=== PATIENT | female | born 2000 | race Caucasian/White ===

== ENCOUNTER 2021-07-12 11:29 | Observation (INO) | payer OTHER, SELFPAY ==
--- NOTE | ~2021-07-12 | US_ITS ---
EXAMINATION: US OB limited DATE: 07/12/2021 14:44 INDICATION: Placenta check. Assess well-being during third trimester . TECHNIQUE: Real-time ultrasound of the pelvis was performed. The interpreting radiologist was not pre sent for the study. COMPARISON: None. FINDINGS: There is a single living fetus in vertex presentation. The placenta is right posterior. heart rate is 139 beats per minute (bpm). The amniotic fluid index is 21.8 cm, which is normal (5th%-95%: 8 .3-24.5 cm at 33 weeks estimated gestational age). IMPRESSION: 1. Single living fetus in vertex presentation with heart rate of 139 bpm. 2. Normal amniotic fluid index of 21.8 cm. Reviewed, dictated and finalized at location A. IMPRESSION: 1. Single living fetus in vertex presentation with heart rate of 139 bpm . 2. Normal amniotic fluid index of 21.8 cm.
[2021-07-12 13:12] LABS: Add Urine Microscopic? YES; Appearance Urine Cloudy (Clear); Bacteria Urine Trace /hpf; Bilirubin Urine Negative (Negative); Blood Urine 1+ (Negative); Color Urine Yellow (Yellow); Glucose Urine UA Negative (Negative); Ketones Urine Negative (Negative); Leukocyte Esterase Ur 3+ LEU/UL (Negative); Nitrate Urine Negative (Negative); Protein Urine 1+ mg/dL (Negative); RBC Urine 0-2 /hpf (0-2); Specific Grav Ur 1.018 (1.001-1.035); Urobilinogen Urine Negative mg/dL (<2.0); WBC Urine 0-3 /hpf
--- NOTE | 2021-07-12 15:41 | OBADM ---
This patient, Fanta Monsivais, admitted to the OB room OB Post 112 for observation. Patient/family oriented to hospital policies and general routines including ID bracelet, bed and alarms, visiting hours, pain management, procedures, bathroom and other care routines, personal items, smoking policy, room service/diet, and visiting hours. Patient/Family are encouraged to report perceived risks to care and to ask questions if they do not understand what they are told or what they should do.
--- NOTE | 2021-07-12 16:03 | PC.NURSE ---
1430- Pt to ultrasound per wheelchair.
--- NOTE | 2021-07-12 16:03 | PC.NURSE ---
1445- pt returned from ultrasound per wheelchair.
--- NOTE | 2021-08-11 19:44 | P.PNOB_ITS ---
OB - Triage/Final Diagnosis Visit Information Comments/Additional reasons for admission: I have assessed the risk for this patient, Fanta Monsivais, and determined that she would benefit from observation care. Evaluation Laboratory results: Laboratory Tests 07/12/21 12:53 Urine Color Yellow Urine Appearance Cloudy H Urine pH 6.0 Ur Specific [place] 1.018 Urine Protein 1+ H Urine Glucose (UA) Negative Urine Ketones Negative Ur Blood (Man) 1+ H Urine Nitrate Negative Urine Bilirubin Negative Urine Urobilinogen Negative Leukocyte Esterase Rfl 3+ H Urine RBC 0-2 Urine WBC 0-3 Urine Bacteria Trace Final Diagnosis (1) Third trimester bleeding: Code(s): O46.93 - Antepartum hemorrhage, unspecified, third trimester Status: Acute
== END 2021-07-12 15:15 | disposition home or self-care (01) ==
PROVIDERS: Admitting Provider Obstetrics & Gynecology; PCP Family Medicine; Visit Provider Obstetrics & Gynecology
DX: O46.93 Antepartum hemorrhage, unspecified, third trimester (principal); Z3A.33 33 weeks gestation of pregnancy
CPT/HCPCS: 76815; 81001; G0378; G0379

== ENCOUNTER 2021-08-06 19:43 | Observation (INO) | payer OTHER, SELFPAY ==
[2021-08-06 21:50] VITALS: BMI 40.0
--- NOTE | 2021-08-06 21:50 | LDADM ---
This patient, Fanta Monsivais, was admitted to Labor/Delivery/Recovery 105 on 08/06/21 at 19:43. Plans for labor, pain management and were discussed with patient. Patient/family oriented to hospital policies and general routines including ID bracelet, bed and alarms, visiting hours, pain management, procedures, bathroom and other care routines, personal items, smoking policy, room service/diet and guest tray routines, infant security routines, and visiting hours. Patient/Family are encouraged to report perceived risks to care and to ask questions if they do not understand what they are told or what they should do. See OBIX for further documentation.
--- NOTE | 2021-08-31 19:40 | PM.OBTRLD ---
OB - Triage/Final Diagnosis Visit Information Comments/Additional reasons for admission: I have assessed the risk for this patient, Fanta Monsivais, and determined that she would benefit from observation care. Final Diagnosis (1) False labor: Code(s): O47.9 - False labor, unspecified Status: Acute
== END 2021-08-06 22:10 | disposition home or self-care (01) ==
PROVIDERS: Admitting Provider Obstetrics & Gynecology; PCP Family Medicine; Visit Provider Obstetrics & Gynecology
DX: O47.9 False labor, unspecified (principal); Z3A.00 Weeks of gestation of pregnancy not specified
CPT/HCPCS: G0378; G0379

== ENCOUNTER 2021-08-19 05:50 | Inpatient (IN) | payer OTHER, SELFPAY ==
[2021-08-19] VITALS (109 sets, daily range): BP systolic 93–169; BP diastolic 39–122; PULSE 65–123; RESP 18; TEMP 36.4–36.9; O2SAT 77–100; BMI 40.5
--- NOTE | 2021-08-19 05:50 | LDADM ---
This patient, Fanta Monsivais, was admitted to Labor/Delivery/Recovery 108 on 08/19/21 at 05:50. Plans for labor, pain management and were discussed with patient. Patient/family oriented to hospital policies and general routines including ID bracelet, bed and alarms, visiting hours, pain management, procedures, bathroom and other care routines, personal items, smoking policy, room service/diet and guest tray routines, infant security routines, and visiting hours. Patient/Family are encouraged to report perceived risks to care and to ask questions if they do not understand what they are told or what they should do. See OBIX for further documentation.
[2021-08-19] MEDS: LACTATED RINGERS 1,000 ML 125 ML IV CONT ×3 (06:32→19:22)
[2021-08-19] MEDS: OXYTOCIN 30 UNITS/NS 500 ML 30 UNITS/500 ML BAG IV CONT (06:34)
[2021-08-19 06:42] LABS: Basophils Percent Auto 0.1 % (0.2-1.2); Eosinophils Percent Auto 0.3 % (0-4.4); Hematocrit 33.7 % (37.0-47.0); Immature Granulocyte Absolute 0.05 K/mm3 (0.00-0.031); Immature Granulocyte Percent A 0.6 % (0-0.5); Lymphocytes Absolute Auto 1.74 K/mm3 (0.9-3.2); Lymphocytes Percent Auto 19.3 % (18.3-44.2); Mean Corpuscular HGB Conc 32.6 g/dl (32-36); Mean Corpuscular Hemoglobin 29.9 pg (26-34); Mean Corpuscular Volume 91.6 fl (80-100); Mean Platelet Volume 11.5 fl (7.4-10.4); Monocytes Absolute Auto 0.6 K/mm3 (0.1-0.6); Monocytes Percent Auto 6.8 % (2.6-8.5); Neutrophils Absolute Auto 6.6 K/mm3 (1.3-6.7); Neutrophils Percent Auto 72.9 % (45.5-73.1); Platelet Count Result 186 k/mm3 (150-375); Red Blood Count 3.68 M/mm3 (4.2-5.4)
--- NOTE | 2021-08-19 07:29 | WPDANESEPP ---
Anes - Eval Pre Procedure Date/Time: 08/19/21 07:29 Pre Op Diagnosis: IOL Patient Data Age: 21 Gender: F Height: 1.68 m Weight: 114 kg Last Vital Signs Pulse 113 H 08/19/21 07:17 BP 105/68 08/19/21 07:17 Allergies Allergy/AdvReac Type Severity Reaction Status Date / Time No Known Allergies Allergy Unverified 01/05/19 20:31 Home Medications Medication Instructions Recorded Confirmed Type 1 tablet PO DAILY 07/12/21 08/19/21 History ferrous fumarate-iron ps cmplx 1 cap PO DAILY 07/12/21 08/19/21 History Laboratory Tests 08/19/21 08/19/21 06:22 06:22 WBC 9.0 K/mm3 K/mm3 (4.5-10.0) RBC 3.68 M/mm3 L M/mm3 (4.2-5.4) Hgb 11.0 g/dL L g/dL (12.0-15.0) Hct 33.7 % L % (37.0-47.0) MCV 91.6 fl fl (80-100) MCH 29.9 pg pg (26-34) MCHC 32.6 g/dl g/dl (32-36) RDW 15.0 % H % (11.5-14.5) Plt Count 186 k/mm3 k/mm3 (150-375) MPV 11.5 fl H fl (7.4-10.4) Immature Gran % (Auto) 0.6 % H % (0-0.5) Neut % (Auto) 72.9 % % (45.5-73.1) Lymph % (Auto) 19.3 % % (18.3-44.2) [place] % (Auto) 6.8 % % (2.6-8.5) Eos % (Auto) 0.3 % % (0-4.4) Baso % (Auto) 0.1 % L % (0.2-1.2) Lymph # (Auto) 1.74 K/mm3 K/mm3 (0.9-3.2) [place] # (Auto) 0.6 K/mm3 K/mm3 (0.1-0.6) Eos # (Auto) 0.0 K/mm3 K/mm3 (0-0.3) Baso # (Auto) 0.0 K/mm3 K/mm3 (0.0-0.1) Abs Immat Gran (auto) 0.05 K/mm3 H K/mm3 (0.00-0.031) Absolute Neuts (auto) 6.6 K/mm3 K/mm3 (1.3-6.7) Absolute Nucleated RBC 0.0 K/mm3 K/mm3 (0.0-0.012) Nucleated RBC % 0.0 % % (0.0-0.2) RPR Pending Patient hx anesthesia problems: none Family hx anesthesia problems: none Results Review: All pre-operative results and documents have been reviewed as part of the pre-operative evaluation. [facility] Family History Family History Mother Seizures Bipolar disorder Social History Social History Years smoked: 2 Smoking status: Current every day smoker Tobacco type: e-cigarettes/vaping Substance use: never Spiritual care concerns: No Exam Day of Procedure 08/19/21 07:29 Patient weight: morbidly obese Heart: regular rate and rhythm Lungs: normal air movement Airway: Mallampati scale Neurological: alert and oriented
--- NOTE | 2021-08-19 08:13 | WPDOBADMIT ---
Obstetrics - Admit Note Admission Note: 21 y/o G1 @ 39w2d here for induction of labor. EFW 9lbs. Discussed with patient. VSS Contractions regular FHR category 1 Cervix 2/60/-2 Pain management as desired Anticipate record reviewed. No pertinent additions to the history and/or any subsequent changes in the physical findings that are not consistent with the expected course of the were found. Additions to the history and/or subsequent changes in the physical findings follow. None.
[2021-08-19 12:44] LABS: Rapid Plasma Reagin Non-Reactive (NonReactive)
[2021-08-19] MEDS: fentaNYL CITRATE INJ (*CRX) 100 MCG/2 ML VIAL 50 MCG IV PUSH ×2 (13:36→15:17)
[2021-08-19] MEDS: fentaNYL CITRATE INJ (*CRX) 100 MCG/2 ML VIAL IV PUSH ×3 (16:25→18:28)
[2021-08-20] VITALS (212 sets, daily range): BP systolic 64–194; BP diastolic 37–179; PULSE 75–256; RESP 12–18; TEMP 36.5–39.2; O2SAT 89–100
[2021-08-20] MEDS: LACTATED RINGERS 1,000 ML 125 ML IV CONT ×2 (01:12→06:51)
[2021-08-20] MEDS: SODIUM CHLORIDE 0.9% IV 300 ML 600 ML I-UTERINE (01:48)
[2021-08-20] MEDS: AMPICILLIN 2 GM/NS 100 ML 2 GM/100 ML BAG IVPB (02:01)
[2021-08-20] MEDS: ONDANSETRON INJ 4 MG/2 ML VIAL IV PUSH ×2 (05:37→10:08)
[2021-08-20] MEDS: AMPICILLIN 1 GM/NS 50 ML 1 GM/50 ML BAG IVPB (05:55)
[2021-08-20] MEDS: OXYTOCIN 30 UNITS/NS 500 ML 30 UNITS/500 ML BAG IV CONT (06:31)
[2021-08-20] MEDS: GENTAMICIN SULFATE INJ 405 MG in DEXTROSE 5% 100 ML 110.13 MG IVPB (07:17)
[2021-08-20] MEDS: CLINDAMYCIN 900 MG/D5W 50 ML 900 MG/50 ML PIGGYBACK 50 MG IVPB (08:07)
--- NOTE | 2021-08-20 08:32 | PM.IMHP ---
H&P: HPI History of Present Illness Date/Time: 08/20/21 08:32 21 y/o G1 @ 39w2d here for induction of labor. EFW [id number] on Thursday. Progress has been slow. Maternal fever and tachyccardia. Head at -1 with caput at 0 station. Pushed with no movement whatsoever. Chief Complaint: Term Review of Systems Review of Systems: All systems reviewed & are unremarkable except as noted in HPI and below PMFSH Family History Family History Mother Seizures Bipolar disorder Social History Social History Years smoked: 2 Smoking status: Current every day smoker Tobacco type: e-cigarettes/vaping Substance use: never Spiritual care concerns: No Meds Home Medications and Allergies Home Medications Medication Instructions Recorded Confirmed Type 1 tablet PO DAILY 07/12/21 08/19/21 History ferrous fumarate-iron ps cmplx 1 cap PO DAILY 07/12/21 08/19/21 History Allergies Allergy/AdvReac Type Severity Reaction Status Date / Time No Known Allergies Allergy Unverified 01/05/19 20:31 Vital Signs Vital Signs - 24 hr 08/19/21 08:46 08/19/21 09:16 08/19/21 09:34 Temperature Pulse Rate 96 93 110 H Respiratory Rate Blood Pressure 115/74 111/80 156/96 H Pulse Oximetry 08/19/21 10:01 08/19/21 10:30 08/19/21 10:31 Temperature 97.9 F Pulse Rate 78 91 Respiratory Rate Blood Pressure 169/122 H 105/64 Pulse Oximetry 08/19/21 11:01 08/19/21 11:31 08/19/21 12:00 Temperature 98.4 F Pulse Rate 87 67 Respiratory Rate Blood Pressure 114/52 L 114/55 L Pulse Oximetry 08/19/21 12:31 08/19/21 13:01 08/19/21 13:31 Temperature Pulse Rate 86 91 96 Respiratory Rate Blood Pressure 138/78 116/69 134/97 H Pulse Oximetry 08/19/21 13:36 08/19/21 14:01 08/19/21 14:31 Temperature 97.9 F Pulse Rate 79 84 Respiratory Rate Blood Pressure 131/82 120/90 Pulse Oximetry 08/19/21 15:00 08/19/21 15:01 08/19/21 16:01 Temperature 98.1 F Pulse Rate 95 77 Respiratory Rate Blood Pressure 95/76 L 122/106 H Pulse Oximetry 08/19/21 16:12 08/19/21 16:31 08/19/21 17:01 Temperature 98.1 F Pulse Rate 86 68 Respiratory Rate Blood Pressure 129/54 L 116/83 Pulse Oximetry 08/19/21 18:01 08/19/21 18:31 08/19/21 19:01 Temperature Pulse Rate 87 96 102 H Respiratory Rate Blood Pressure 101/72 130/70 117/74 Pulse Oximetry 08/19/21 19:31 08/19/21 19:46 08/19/21 19:50 Temperature Pulse Rate 85 114 H Respiratory Rate Blood Pressure 103/67 126/84 Pulse Oximetry 99 08/19/21 19:51 08/19/21 19:53 08/19/21 19:56 Temperature Pulse Rate 87 89 106 H Respiratory Rate Blood Pressure 139/72 121/74 124/56 L Pulse Oximetry 100 100 08/19/21 19:58 08/19/21 20:00 08/19/21 20:01 Temperature 97.7 F Pulse Rate 97 90 Respiratory Rate Blood Pressure 126/63 112/53 L Pulse Oximetry 100 08/19/21 20:03 08/19/21 20:05 08/19/21 20:06 Temperature Pulse Rate 100 96 Respiratory Rate Blood Pressure 104/42 L 106/39 L Pulse Oximetry 100 08/19/21 20:08 08/19/21 20:11 08/19/21 20:13 Temperature Pulse Rate 89 93 77 Respiratory Rate Blood Pressure 106/65 105/58 L 111/61 Pulse Oximetry 97 08/19/21 20:16 08/19/21 20:19 08/19/21 20:21 Temperature Pulse Rate 90 101 H 83 Respiratory Rate Blood Pressure 96/48 L 111/47 L 119/65 Pulse Oximetry 98 99 08/19/21 20:25 08/19/21 20:26 08/19/21 20:28 Temperature Pulse Rate 74 75 Respiratory Rate Blood Pressure 120/53 L 125/60 Pulse Oximetry 97 08/19/21 20:31 08/19/21 20:34 08/19/21 20:36 Temperature Pulse Rate 68 95 Respiratory Rate Blood Pressure 114/57 L 109/75 Pulse Oximetry 98 97 08/19/21 20:41 08/19/21 20:46 08/19/21 20:51 Temperature Pulse Rate 72 Respiratory Ra
--- NOTE | 2021-08-20 08:38 | PM.OBPNLAB ---
Pain Control Date/time seen: 08/20/21 [address] De Luna. Agreeable to pushing and evaluate progress. 0830 No progress with pushing. section for failure to descend called.
--- NOTE | 2021-08-20 09:05 | P.PNAN_ITS ---
Anes - Eval Final PreProcedure Day of Procedure 08/20/21 09:05 Patient weight: morbidly obese Heart: regular rate and rhythm Lungs: clear to auscultation Airway: Mallampati scale class II Last oral intake: >/= 8 hours ASA classification: III Emergent: no Anesthetic plan: proceed Anesthesia type and monitoring: regional epidural and standard monitoring Results Review: All pre-operative results and documents have been reviewed as part of the pre-operative evaluation. Informed Consent: The patient's anesthetic plan and its attendant risks and benefits were discussed with the patient/family/POA. Questions were solicited a nd answers provided to the satisfaction of the patient/family/POA.
--- NOTE | 2021-08-20 10:04 | W.PM.PROC2 ---
Procedure Note - Detailed Date of Procedure 08/20/21 Pre-op Diagnosis Failure to descend, large for gestational age, Post-op Diagnosis same (Malposition of head) Procedure Performed Low-transverse section Surgeon Tiny De Luna MD Anesthesia spinal Findings Normal gestational maternal anatomy, average size , normal Apgars. Left occiput posterior position of the head Description of Procedure The patient was taken the operating room. She was prepped and draped in dorsal supine position with a leftward tilt. This was done after spinal anesthetic was applied. A low-transverse skin incision was made and carried down till of the fascia with the knife. The fascial incision was made with the knife. The fascial incision was extended laterally with Burton scissors. The fascia was tented upward superiorly and inferiorly the rectus muscles were dissected off bluntly. The rectus muscles were the midline. The preperitoneal fat and peritoneum were dissected open bluntly at the superior aspect of the rectus muscles. The peritoneal incision was extended superior and inferior with good position of bladder. The uterine incision was made with a scalpel down to the level of the amniotic cavity. The amniotic cavity was entered bluntly. The was delivered. The cord was clamped and cut and the infant was handed off to waiting pediatric staff. Cord bloods were obtained. The placenta was removed manually. The uterus was exteriorized. The uterus was cleared of all clots, debris and membranes. The uterus was closed in 0 Vicryl running lock fashion. An imbricating over a was placed along the incision line as well. The uterus was returned to the abdomen. The gutters were cleared of all clots and debris. The fascia was closed with 0 Vicryl running fashion. The subcutaneous tissue was irrigated pinpoint bleeders were cauterized. The skin was closed with subcuticular absorbable carlee. The skin incision line was covered with glue. The patient tolerated the procedure well. She has taken recovery room in stable condition. Sponge lap and needle counts were correct x2. Estimated Blood Loss 560 Complications No immediate complications Condition stable Disposition PACU
[2021-08-20] MEDS: OXYTOCIN 30 UNITS/NS 500 ML 30 UNITS/500 ML BAG 125 UNITS IV CONT (10:42)
[2021-08-20] MEDS: fentaNYL CITRATE INJ (*CRX) 100 MCG/2 ML VIAL 25 MCG IV PUSH (11:38)
--- NOTE | 2021-08-20 15:00 | PC.NURSE ---
Mother called out for assist with feeding, reporting eagerly fed first feeding sleepy for second. is able to freely thrust tongue past gum ridge and flange both lips. Skin is intact on both nipples, no redness and bruising noted. Reviewed infant feeding cues, frequencies, duration of feedings, feeding elimination flow sheet, and signs of adequate intake. Demonstrated stimulation techniques to wake for feeding. Assisted with infant to breast. Reviewed positioning/alignment in cross cradle, holding breast in ?U? hold and guided asymmetrical latch on. Reviewed rational for each. Infant able to latch correctly within a few attempts. nursed eagerly with steady draws and occasional swallowing noted, some pausing noted. Reviewed signs of a correct latch, effective nursing and suck swallow ratio. Suggested mother stimulate while feeding to increase stimulate, increase intake and to assist with maintaining deep latch. Infant would slip to shallow latch causing tenderness. Demonstrated how to adjust latch more deeply while feeding if needed. Mother reports she can feel the difference in latch with no tenderness. Nipple care reviewed of lanolin after feedings, warm compresses as needed. Instructed mother to call out for RN assistance if she is unable to latch infant for feeding or she has discomfort with nursing. Instructed feeding should be initiated three hours from start of last feeding or if feeding cues are noted before. Mother voiced understanding of information shared.
--- NOTE | 2021-08-20 15:42 | OBPPTRN ---
1300 Patient transferred to post room #291 via stretcher. Support person present. Oriented to unit, room, information board, rooming in, admission packet and security measures. Patient verbalizes understanding.
[2021-08-20] MEDS: KCL 20 MEQ/D5/0.45% SOD CHL 1,000 ML 125 ML IV CONT (15:54)
[2021-08-20] MEDS: KETOROLAC 30 MG/ML VIAL (*BKC) IV PUSH (18:47)
[2021-08-21 00:11] VITALS: BP 105/59; PULSE 98; RESP 16; TEMP 36.8; O2SAT 100
[2021-08-21] MEDS: HYDROcodone/acetaminophen (*CRX) 5-325 MG TABLET 1 TAB PO ×3 (01:54→12:20)
[2021-08-21] MEDS: IBUPROFEN 600 MG TABLET PO ×3 (01:55→19:25)
[2021-08-21 04:51] VITALS: BP 104/54; PULSE 100; RESP 18; TEMP 37.2; O2SAT 95
[2021-08-21 05:19] LABS: Hematocrit 27.3 % (37.0-47.0); Hemoglobin 9.1 g/dL (12.0-15.0); Mean Corpuscular HGB Conc 33.3 g/dl (32-36); Mean Corpuscular Hemoglobin 30.6 pg (26-34); Mean Corpuscular Volume 91.9 fl (80-100); Mean Platelet Volume 11.8 fl (7.4-10.4); Platelet Count Result 176 k/mm3 (150-375); Red Blood Count 2.97 M/mm3 (4.2-5.4); Red Cell Distribution Width 15.7 % (11.5-14.5); White Blood Count 17.3 K/mm3 (4.5-10.0)
[2021-08-21 06:03] LABS: Band Neutrophils Percent 9 % (0-6); Lymphocytes Absolute Manual 1.03 K/mm3 (1.1-4.5); Monocytes Absolute Manual 1.38 K/mm3 (0.1-0.90); Monocytes Percent Manual 8 % (3-9); Neutrophils Absolute Manual 14.87 K/mm3 (1.7-7.2); Neutrophils Percent Manual 77 % (46-73); Platelet Estimate Adequate (Adequate); Total Cells Counted 100
[2021-08-21 07:15] VITALS: PULSE 89; RESP 16; TEMP 36.8; O2SAT 98
[2021-08-21] MEDS: POLYSACCHARIDE IRON COMPLEX 150 MG CAPSULE PO ×2 (07:22→16:18)
[2021-08-21] MEDS: DOCUSATE SODIUM 100 MG CAPSULE PO ×2 (07:22→16:18)
--- NOTE | 2021-08-21 09:15 | PM.OBPNVD ---
OB - PN: Subj Subjective Date/time seen: 08/21/21 09:15 Patient comments: no complaints, pain well controlled, tolerating diet and flatus present OB - PN: Obj Data Labs CBC & Chem 7: 08/21/21 04:11 Labs: Laboratory Results - last 24 hr 08/21/21 04:11 WBC 17.3 H RBC 2.97 L Hgb 9.1 L Hct 27.3 L MCV 91.9 MCH 30.6 MCHC 33.3 RDW 15.7 H Plt Count 176 MPV 11.8 H Immature Gran % (Auto) Not Reportable Neut % (Auto) Not Reportable Lymph % (Auto) Not Reportable [place] % (Auto) Not Reportable Eos % (Auto) Not Reportable Baso % (Auto) Not Reportable Lymph # (Auto) Not Reportable [place] # (Auto) Not Reportable Eos # (Auto) Not Reportable Baso # (Auto) Not Reportable Abs Immat Gran (auto) Not Reportable Absolute Neuts (auto) Not Reportable Absolute Nucleated RBC Not Reportable Total Counted 100 Neutrophils % (Manual) 77 H Band Neutrophils % 9 H Lymphocytes % (Manual) 6.0 L Monocytes % (Manual) 8 Nucleated RBC % Not Reportable Abs Neuts (Manual) 14.87 H Abs Lymphs (Manual) 1.03 L Abs Monocytes (Manual) 1.38 H Platelet Estimate Adequate OB - PN A/P Plan day: 1 Comments: Post Op LTCS - no problems, routine recovery Time Spent With Patient Time: Total time spent is greater than 50% in coordination of care (as documented) at patient's floor/unit and/or counseling patient: Exam Const: General: cooperative, healthy appearing, comfortable and no acute distress Resp: Auscultation: no crackles, no rales, no rhonchi and no wheezes Cardio: Rhythm: regular rhythm Heart sounds: no click and no murmurs GI: Inspection: non-distended Auscultation: normal bowel sounds Extrem: General: normal to inspection, no pedal edema and no calf tenderness
[2021-08-21] MEDS: MULTIVIT/MIN/PREN/FOL AC/IRON TABLET 1 TAB PO (12:19)
[2021-08-21] MEDS: SIMETHICONE 80 MG TAB.CHEW PO ×2 (12:20→16:19)
--- NOTE | 2021-08-21 13:39 | WPDANLDPN2 ---
Anes-Prog Note L&D Date/Time: 08/21/21 13:39 Comfortable throughout: labor and delivery Neuraxial method: epidural Neuro status: Neuro function grossly intact. Cardiovascular status: normal Respiratory status: normal Airway patency: baseline Mental status: baseline Post-Op hydration status: normal Vital Signs: Last Vital Signs Temp 36.8 C 08/21/21 07:15 Pulse 89 08/21/21 07:15 Resp 16 08/21/21 07:15 BP 104/54 L 08/21/21 04:51 Pulse Ox 98 08/21/21 07:15 Pain score (VAS): 0 I/O: Intake & Output 08/20/21 08/21/21 08/21/21 23:59 07:59 15:59 Intake Total 200 Output Total 900 Balance -700 Post-procedural complaints: none Patient feedback: Patient satisfied with anesthetic care.
--- NOTE | 2021-08-21 15:34 | PC.NURSE ---
1500 LC spoke with pt's primary nurse; mother again stated she tried to breast feed infant, but baby would not latch so mother bottle fed. Mother did not call out for nurse assistance with breast feeding. LC had asked mother to call at the 1300 feeding for assistance with breast feeding, but mother did not call out. Pt's nurse also reported she had encouraged mother to call for nurse assistance with breast feeding.
[2021-08-21] MEDS: HYDROcodone/acetaminophen (*CRX) 10-325 MG TABLET 1 TAB PO ×2 (16:18→19:25)
--- NOTE | 2021-08-21 17:19 | PC.NURSE ---
Baby due to eat. Mother finishing her meal and instructed to call for assistance with breast feeding. Nurse checked on pt. and pt. stated baby did not breast feed but she gave a bottle. Pt. encouraged to call for assistance with if she is unable to get baby to if that is her goal. Discussed supplementing and bottle feeding if that is what she would prefer to do.
[2021-08-21 20:00] VITALS: BP 110/54; PULSE 91; RESP 18; TEMP 36.2; O2SAT 96
[2021-08-22] MEDS: IBUPROFEN 600 MG TABLET PO ×2 (02:18→08:41)
[2021-08-22] MEDS: HYDROcodone/acetaminophen (*CRX) 10-325 MG TABLET 1 TAB PO (02:18)
--- NOTE | 2021-08-22 08:01 | PM.OBPNVD ---
OB - PN: Subj Subjective Date/time seen: 08/22/21 08:01 Patient comments: no complaints, pain well controlled, incisional pain, tolerating diet and flatus present OB - PN: Obj Data Labs CBC & Chem 7: 08/21/21 04:11 OB - PN A/P Plan day: 2 Plan: routine care Comments: POD#2 LTCS - no problems, Time Spent With Patient Time: Total time spent is greater than 50% in coordination of care (as documented) at patient's floor/unit and/or counseling patient: Exam Const: General: comfortable, no acute distress and alert Resp: Effort & Inspection: normal respiratory effort Auscultation: no crackles, no rales and no rhonchi Cardio: Rate: regular rate Heart sounds: no click, no murmurs and no rubs GI: Inspection: non-distended GI Palp: No Tenderness to palpation present (GI) Auscultation: normal bowel sounds Other: Incision - CDI Extrem: General: normal to inspection, no pedal edema and no calf tenderness
--- NOTE | 2021-08-22 08:01 | PM.OBDSVD ---
DS: Admitting Diagnosis Discharge Date 08/22/2021 Admitting Diagnosis term DS: Discharge Diagnosis Discharge Diagnosis (1) Term : Code(s): Z34.90 - Encounter for supervision of normal , unspecified, unspecified trimester Status: Acute OB - DS: Summary OB Procedures : NST OB Procedures Intrapartum: OB Procedures: : None Peripartum Data Delivery Method: Section Procedures: Procedures Operation Date: 08/20/21 09:00 Actual Procedure Side Surgeon p Section Bilateral Tiny De Luna MD Status at Discharge Functional status at discharge: independent ambulation Time Spent with Patient Time attestation: Total time spent providing and/or coordinating discharge services: DS: Data Data Completed and Pending Pending studies at discharge: Pending at discharge 08/20/21 09:26 Surgical [PTH] Routine Discharge Plan Discharge Discharging Clinician: Tiny De Luna Patient Disposition: Home, Self-Care Activity: pelvic rest Diet: regular Patient Instructions: Antibiotic Form Stand Alone Forms: General Discharge Information Follow-up/Referrals: Tiny De Luna MD [Physician] - Discharge Medications: New hydrocodone-acetaminophen 5-325 mg tablet 1 - 2 tablet PO Q4H PRN (Reason: pain) Qty: 25 RF: 0 Continued ferrous fumarate-iron ps cmplx 162-115.2 (106) mg Capsule 1 cap PO DAILY RF: 0 28-800 mg-mcg Tablet 1 tablet PO DAILY RF: 0 Date of admission: 08/19/21 05:50 Primary Care Provider: Kyung Waldron Admitting Provider: Tiny De Luna Attending physician on admission: Tiny De Luna Condition: Stable
[2021-08-22] MEDS: DOCUSATE SODIUM 100 MG CAPSULE PO (08:40)
[2021-08-22] MEDS: MULTIVIT/MIN/PREN/FOL AC/IRON TABLET 1 TAB PO (08:40)
[2021-08-22] MEDS: SIMETHICONE 80 MG TAB.CHEW PO (08:40)
[2021-08-22] MEDS: POLYSACCHARIDE IRON COMPLEX 150 MG CAPSULE PO (08:40)
[2021-08-22] MEDS: HYDROcodone/acetaminophen (*CRX) 5-325 MG TABLET 1 TAB PO (08:41)
[2021-08-22 09:10] VITALS: BP 116/59; PULSE 113; RESP 16; TEMP 36.9; O2SAT 99
--- NOTE | 2021-08-22 10:42 | PC.NURSE ---
Patient viewed the discharge video Mother & Baby Care, The First Two Weeks . Patient was given the opportunity and encouraged to ask questions. Patient verbalized understanding of information shared and has been given the mother/baby guide for home reference.
[2021-08-23 11:58] VITALS: BP 117/73; PULSE 101; RESP 20; TEMP 37.1; O2SAT 100
== END 2021-08-22 11:40 | disposition home or self-care (01) | DRG 540 ==
LOC: ANHLDR 08-20 11:21 → ANHOB2 08-20 13:06
PROVIDERS: Advanced Practice Midwife; Admitting Provider Obstetrics & Gynecology; PCP Family Medicine; Visit Provider Obstetrics & Gynecology
PROC: (CPT 59514; principal; 2021-08-20 09:00)
DX: O32.4XX0 Maternal care for high head at term, not applicable or unspecified (principal); O75.2 Pyrexia during labor, not elsewhere classified; O42.92 Full-term premature rupture of membranes, unspecified as to length of time between rupture and onset of labor; O41.1230 Chorioamnionitis, third trimester, not applicable or unspecified; O99.334 Smoking (tobacco) complicating childbirth; F17.290 Nicotine dependence, other tobacco product, uncomplicated; O77.0 Labor and delivery complicated by meconium in amniotic fluid; O76 Abnormality in fetal heart rate and rhythm complicating labor and delivery; Z3A.39 39 weeks gestation of pregnancy; Z37.0 Single live birth; Z23 Encounter for immunization
CPT/HCPCS: 36415; 85025; 86592; 86850; 86900; 86901; 88307; 90471; 90653; A9270; G0008; J0131; J0290; J1200; J1580; J1885; J2274; J2405; J2590; J2795; J3010; J3480; J7030; J7120

== ENCOUNTER 2022-02-07 23:25 | Emergency (ER) | payer OTHER, SELFPAY ==
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
[2022-02-07 23:34] VITALS: BP 172/100; PULSE 116; RESP 16; TEMP 36.2; O2SAT 97
[2022-02-07 23:41] VITALS: RESP 16
--- NOTE | 2022-02-07 23:43 | PC.NURSE ---
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
[2022-02-07 23:44] VITALS: BP 145/92; PULSE 96; RESP 16; O2SAT 97
[2022-02-07 23:46] VITALS: BP 130/90; O2SAT 97
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
[2022-02-07] MEDS: SODIUM CHLORIDE 0.9% IV 1,000 ML 999 ML IV CONT (23:50)
[2022-02-08] VITALS: O2SAT 99
[2022-02-08 00:01] VITALS: BP 124/67; O2SAT 98
[2022-02-08 00:15] VITALS: O2SAT 99
[2022-02-08 00:16] VITALS: BP 119/80; O2SAT 99
[2022-02-08 01:01] LABS: Basophils Percent Auto 0.2 % (0.2-1.2); Eosinophils Percent Auto 0.1 % (0-4.4); Hemoglobin 13.9 g/dL (12.0-15.0); Immature Granulocyte Absolute 0.03 K/mm3 (0.00-0.031); Immature Granulocyte Percent A 0.3 % (0-0.5); Lymphocytes Absolute Auto 2.04 K/mm3 (0.9-3.2); Lymphocytes Percent Auto 19.7 % (18.3-44.2); Mean Corpuscular HGB Conc 33.1 g/dl (32-36); Mean Corpuscular Hemoglobin 30.3 pg (26-34); Mean Corpuscular Volume 91.7 fl (80-100); Mean Platelet Volume 10.2 fl (7.4-10.4); Monocytes Absolute Auto 0.5 K/mm3 (0.1-0.6); Monocytes Percent Auto 4.7 % (2.6-8.5); Neutrophils Absolute Auto 7.7 K/mm3 (1.3-6.7); Platelet Count Result 335 k/mm3 (150-375); Red Blood Count 4.58 M/mm3 (4.2-5.4); Red Cell Distribution Width 12.7 % (11.5-14.5); White Blood Count 10.3 K/mm3 (4.5-10.0)
[2022-02-08] MEDS: ACETAMINOPHEN 500 MG TABLET 1000 MG PO (01:02)
[2022-02-08 01:08] LABS: Alanine Aminotransferase 27 U/L (4-35); Albumin Level 4.8 g/dL (3.5-5.1); Alkaline Phosphatase 44 U/L (38-126); Anion Gap 10 mmol/L (8-16); Aspartate Amino Transferase 41 U/L (14-36); Bilirubin,Total 0.4 mg/dL (0.2-1.3); Blood Urea Nitrogen 14 mg/dL (7-17); Calcium 9.4 mg/dL (8.4-10.2); Carbon Dioxide 24 mmol/L (22-30); Chloride 108 mmol/L (98-107); Estimated CRCL calculation 132 ml/min; Estimated Glomerular Filt Rate > 60; Glucose 89 mg/dL (65-110); Potassium 4.3 mmol/L (3.4-5.0); Sodium 142 mmol/L (137-145)
--- NOTE | 2022-02-08 01:24 | PC.NURSE ---
Pt states DE OLIVEIRA is improving. Pt going to CT at this time.
[2022-02-08] MEDS: KETOROLAC 30 MG/ML VIAL (*BKC) IV PUSH (02:23)
[2022-02-08 02:25] VITALS: BP 121/84; PULSE 83; RESP 16; O2SAT 97
== END 2022-02-08 02:42 | disposition home or self-care (01) ==
PROVIDERS: Emergency Provider Nurse Practitioner Family; PCP Family Medicine
DX: S09.90XA Unspecified injury of head, initial encounter (principal); S19.9XXA Unspecified injury of neck, initial encounter; F17.290 Nicotine dependence, other tobacco product, uncomplicated; Y04.8XXA Assault by other bodily force, initial encounter
CPT/HCPCS: 36415; 70450; 70491; 80053; 81025; 85025; 96361; 96374; 99284; A9270; J1885; J7030; Q9967

== ENCOUNTER 2022-08-15 17:31 | Emergency (ER) | payer OTHER, SELFPAY ==
[2022-08-15 17:39] VITALS: BP 136/78; PULSE 96; RESP 18; TEMP 36.1; O2SAT 98
--- NOTE | 2022-08-15 17:57 | ED.URI ---
HPI - URI/Sore Throat General Chief Complaint: Upper Respiratory Infection Stated Complaint: Sore Throat,Running Nose, Cough Time Seen by Provider: 08/15/22 17:50 Source: patient Mode of arrival: ambulatory Limitations: no limitations History of Present Illness HPI Narrative: 22-year-old female who presents to [facility] care with complaints of 3-day history of runny nose headache body aches and ear pain productive yellow cough and sore throat. Patient states she has noted some wheezing and has been using her nebulizer at home with last treatment this morning lungs are presently clear to auscultation but cough continues. Patient does have a history of asthma MD elicited complaint: cough, sore throat, rhinorrhea and nasal congestion Pertinent past history: asthma Onset (ago): day(s) (3) Pain scale (0-10): 7 Treatments prior to arrival: acetaminophen, ibuprofen and other (nebulizer) Related Data Allergies Allergy/AdvReac Type Severity Reaction Status Date / Time No Known Allergies Allergy Verified 08/15/22 17:37 Review of Systems Review of Systems: CONSTITUTIONAL: Denies fever, chills, or sweats. EYES: Denies visual changes, redness, or discharge. ENT: positive for rhinorrhea, congestion, sore throat, no otalgia. CARDIOVASCULAR: Denies chest pain, palpitations, or edema. RESPIRATORY: Positive for cough denies dyspnea.reports wheezing GASTROINTESTINAL: Denies abdominal pain, nausea, vomiting, or diarrhea. GENITOURINARY: Denies dysuria or hematuria. SKIN: Denies rash or itching. MUSCULOSKELETAL: Denies back pain, joint pain, reports generalized pain NEUROLOGIC: Positive for headache,no numbness, or weakness. PSYCHIATRIC: Denies anxiety or depression. All systems reviewed & are unremarkable except as noted in HPI and below [facility] Past Medical History Medical History (Updated 08/19/22 @ 09:11 by Thais Wang NP) Asthma GERD (gastroesophageal reflux disease) Surgical History Surgical History (Updated 08/19/22 @ 09:12 by Thais Wang NP) History of placement of ear tubes History of tonsillectomy and adenoidectomy Family History Family History Mother Seizures Bipolar disorder Social History Social History Years smoked: 2 Smoking status: Current every day smoker Tobacco type: e-cigarettes/vaping Substance use: never Spiritual care concerns: No Comments At time of signature, agree with nursing past medical, surgical, social and family history. There is no relevant family history pertinent to the presenting complaint Exam Narrative: GENERAL: Well-appearing, well-nourished, and in no acute distress. HEAD: Normocephalic, atraumatic. EYES: PERRLA and EOMI. ENT: Nares red with yellow tinged rhinorrhea no epistaxis. Mucous membranes moist.TM's normal with good light reflex, throat red with no lesions or tonsils present,post nasal drainage noted NECK: Supple.no lymphadenopathy CHEST: Clear to auscultation. No respiratory distress. Productive cough with yellowish drainage SaO2 98% on room air HEART: Regular rate and rhythm. No murmur heard. Normal peripheral pulses. ABDOMEN: Soft, nontender, nondistended, normal active bowel sounds. EXTREMITIES: Normal range of motion. No edema. SKIN: Warm, dry, no rash. NEURO: No focal deficits. Alert and oriented x3. Course Course Level of Care: Express Care Visit Vital Signs Vital signs: Vital Signs Temperature 36.1 C L 08/15/22 17:39 Pulse Rate 96 08/15/22 17:39 Respiratory Rate 18 08/15/22 17:39 Blood Pressure 136/78 08/15/22 17:39 Pulse Oximetry 98 08/15/22 17:39 Oxygen Delivery Room Air 08/15/22 17:39 Temperature 36.1 C L 08/15/22 17:39 Pulse Rate 96 08/15/22 17:39 Respiratory Rate 18 08/15/22 17:39 Blood Pressure 136/78 08/15/22 17:39 Pulse Oximetry 98 08/15/22 17:39 Oxygen Delivery Room Air 08/15/22 17:
== END 2022-08-15 18:22 | disposition home or self-care (01) ==
PROVIDERS: Emergency Provider Registered Nurse
DX: J06.9 Acute upper respiratory infection, unspecified (principal); R05.9 Cough, unspecified; Z20.822 Contact with and (suspected) exposure to COVID-19; F17.290 Nicotine dependence, other tobacco product, uncomplicated; J45.909 Unspecified asthma, uncomplicated; K21.9 Gastro-esophageal reflux disease without esophagitis
CPT/HCPCS: 87426; 87804; 99213; C9803; G0463

== ENCOUNTER 2025-11-06 09:44 | Emergency (ER) | payer OTHER, SELFPAY ==
--- NOTE | ~2025-11-06 | CT_ITS ---
CT abdomen pelvis w con Clinical History: abd pain . Comparison: None Technique: Axial images lung bases to symphysis pubis IV contrast information not listed in PACS Coronal, sagittal reformats CT images acquired with automatic exposure control for dose reduction DLP: 1056 mGy-cm Findings: Lung bases: Clear. Visualized heart and pericardium: Unremarkable. Liver: Steatosis. Gallbladder: Unremarkable. Spleen: Unremarkable. Pancreas: Unremarkable. Adrenal glands: Unremarkable. Kidneys: Right kidney- No hydronephrosis. No renal stones. Small cyst. Left kidney- No hydronephrosis. No renal stones. Small cyst. Distal esophagus/stomach: Unremarkable. Small bowel loops: Normal caliber and wall thickness. Colon: A few diverticula. Normal caliber and wall thickness. Normal RLQ appendix. Nodes: No enlarged nodes. Peritoneum: No ascites. No free air. Urinary bladder: Unremarkable. Uterus: Unremarkable. Adnexa: No masses. Bones: No acute bony abnormality. Soft tissues: Unremarkable. Aorta: No aneurysm or dissection. IVC: Unremarkable. Main portal vein/SMV/splenic vein: Patent. IMPRESSION: 1. No acute findings. Reviewed, dictated and finalized at location R. [employer] IMPRESSION: 1. No acute findings.
[2025-11-06 09:54] VITALS: BP 143/75; PULSE 65; RESP 14; TEMP 37.1; O2SAT 98
--- NOTE | 2025-11-06 11:01 | ED.GENADULT ---
HPI - General Adult General Chief complaint: Urogenital-Female Stated complaint: kidney infection Time Seen by Provider: 11/06/25 10:49 History of Present Illness HPI narrative: 25-year-old female present to the ER complaining of left upper quadrant abdominal pain radiates into her periumbilical area for several days. Reports nausea of. Last BM 2 days ago. Denies fevers, urinary frequency/urgency or dysuria. Related Data Allergies Allergy/AdvReac Type Severity Reaction Status Date / Time No Known Allergies Allergy Verified 11/06/25 11:43 Review of Systems Review of Systems: All systems reviewed & are unremarkable except as noted in HPI and below PMF[facility] Past Medical History Medical History GERD (gastroesophageal reflux disease) Asthma Surgical History Surgical History (Updated 08/19/22 @ 09:12 by Thais Wang APRN) History of placement of ear tubes History of tonsillectomy and adenoidectomy Family History Family History Mother Seizures Bipolar disorder Social History Social History Years smoked: 2 Smoking status: Current every day smoker Tobacco type: e-cigarettes/vaping Substance use: never Spiritual care concerns: No Exam Const: General: healthy appearing and alert Nutritional Appearance: obese Orientation/consciousness: patient oriented x3 Resp: Effort & Inspection: normal respiratory effort Auscultation: clear to auscultation bilaterally Cardio: Rate: regular rate Rhythm: regular rhythm GI: GI Palp: Yes Soft to palpation and Yes Tenderness to palpation present (GI) Other: TTP to LUQ Back/Spine/Pelvis: Back: CVA tenderness Skin: General skin exam: normal color Rashes: no rashes Neuro: General: patient oriented x3 and moves all extremities Extrem: General: normal to inspection Psych: Mental Status: mental status grossly normal Affect: normal affect Course Vital Signs Vital signs: Vital Signs Temperature 37.1 C 11/06/25 09:54 Pulse Rate 65 11/06/25 09:54 Respiratory Rate 14 11/06/25 09:54 Blood Pressure 143/75 H 11/06/25 09:54 Pulse Oximetry 98 11/06/25 09:54 Oxygen Delivery Room Air 11/06/25 09:54 Temperature 37.1 C 11/06/25 11:33 Pulse Rate 87 11/06/25 14:07 Respiratory Rate 17 11/06/25 14:07 Blood Pressure 106/71 11/06/25 14:07 Pulse Oximetry 100 11/06/25 14:07 Oxygen Delivery Room Air 11/06/25 11:33 MDM MDM Narrative Medical decision making narrative: In summary: 25-year-old female presents the ER complaining of upper quadrant abdominal pain for several days. CT scan shows acute abnormality. Lab work was unremarkable. Findings likely result of heavy stool burden in the descending colon. Please discharge patient home with magnesium citrate, follow with her PCP Differential Diagnosis Differential Diagnosis: Constipation, diverticulitis, colitis, kidney stone Lab Data 11/06/25 11:44 11/06/25 11:44 Labs: Lab Results 11/06/25 11/06/25 Range/Units 11:39 11:44 WBC 4.7 (4.5-10.0) K/mm3 RBC 4.20 (4.2-5.4) M/mm3 Hgb 13.4 (12.0-15.0) g/dL Hct 38.6 (37.0-47.0) % MCV 91.9 (80-100) fl MCH 31.9 (26-34) pg MCHC 34.7 (32-36) g/dl RDW 11.8 (11.5-14.5) % Plt Count 232 (150-375) k/mm3 MPV 9.2 (7.4-10.4) fl Immature Gran % (Auto) 0.6 H (0-0.5) % Neut % (Auto) 74.4 H (45.5-73.1) % Lymph % (Auto) 15.6 L (18.3-44.2) % [place] % (Auto) 8.8 H (2.6-8.5) % Eos % (Auto) 0.4 (0-4.4) % Baso % (Auto) 0.2 (0.2-1.2) % Lymph # (Auto) 0.73 L (0.9-3.2) K/mm3 [place] # (Auto) 0.4 (0.1-0.6) K/mm3 Eos # (Auto) 0.0 (0-0.3) K/mm3 Baso # (Auto) 0.0 (0.0-0.1) K/mm3 Abs Immat Gran (auto) 0.03 (0.00-0.031) K/mm3 Absolute Neuts (auto) 3.5 (1.3-6.7) K/mm3 Absolute Nucleated RBC 0.000 (0.0-0.012) K/mm3 Nucleated RBC % 0.0 (0.0-0.2) % Sodium 133 L (137-145) mmol/L Potassium 3.7 (3.4-5.0) mmol/L Chloride 101 (98-107) mmol/L Carbon Dioxide 29 (22-30) mmol/L Anion Gap 3 L (4-12) mmol/L BUN 14 (7-17) mg/dL Creatinine 0.86 (0.7-1.0) mg/dL Estim Creat Clear Calc 110 ml/min Estimated GFR > 60 (59 - ) Glucose 103 (65-110) mg/dL Calcium 8.6 (8.4-10.2) mg/dL Total Bilirubin 0.8 (0.2-1.3) mg/dL AST 27 (14-36) U/L ALT 21 (6-35) U/L Alkaline Phosphatase 38 (38-126) U/L Total Protein 7.2 (6.3-8.2) g/dL Albumin 4.0 (3.5-5.1) g/dL Lipase 45 (23-300) U/L Urine Color Dark yellow (Yellow) Urine Appearance Cloudy H (Clear) Urine pH 5.5 (5.0-9.0) Ur Specific [place] 1.029 (1.001-1.035) Urine Protein Trace (Negative) mg/dL Urine Glucose (UA) Negative (Negative) mg/dL Urine Ketones Trace H (Negative) mg/dL Ur Blood (Man) Negative (Negative) Urine Nitrate Negative (Negative) Urine Bilirubin Negative (Negative) Urine Urobilinogen 1.0 (<2.0) mg/dL Add Ur Microanalysis Reviewed Leukocyte Esterase Rfl Trace H (Negative) HUSEYIN/UL Urine RBC 0-2 (0-2) /hpf Urine WBC 0-5 (0-3) /hpf Ur Squamous Epith Cells Many H (Few) /hpf Urine Bacteria 1+ H /hpf Urine Casts 0-2 Urine Mucus Present /lpf POC Urine HCG, Qual Negative (Negative) Imaging Data Radiologist's impression: ITS Impressions Abdomen/Pelvis CT 11/06/25 12:40 IMPRESSION: 1. No acute findings. Discharge Plan Discharge Clinical Impression: Abdominal pain Qualifiers: Abdominal location: left upper quadrant Qualified Code(s): R10.12 - Left upper quadrant pain Patient Disposition: Home Condition: Stable Instructions: Antibiotic Form, Abdominal Pain (ED) Patient Language: Lao Prescriptions: New magnesium citrate [OneLAX Magnesium Citrate] Solution 300 ml PO DAILY PRN (Reason: constipation) Qty: 296 0RF No Action prednisone 20 mg tablet 20 mg PO BID Qty: 10 0RF azithromycin 250 mg tablet See Rx Instructions .ROUTE .COMPLEX Qty: 6 0RF Rx Instructions: For 250 mg dose pack: take 500 mg today (day 1), then 250 mg for 4 days (days 2-5) Follow-up/Referrals: PHYSICIAN,L[facility]WER [Primary Care Provider, Internal Medicine] Stand Alone Forms: Work/School Release IP Time of Disposition: 14:16
[2025-11-06 11:33] VITALS: BP 130/86; PULSE 94; RESP 16; TEMP 37.1; O2SAT 100
[2025-11-06] MEDS: SODIUM CHLORIDE 0.9% IV 1,000 ML 999 ML IV CONT (11:46)
[2025-11-06] MEDS: ONDANSETRON INJ 4 MG/2 ML VIAL IV PUSH (11:47)
[2025-11-06 11:51] LABS: Hematocrit 38.6 % (37.0-47.0); Hemoglobin 13.4 g/dL (12.0-15.0); Immature Granulocyte Percent A 0.6 % (0-0.5); Lymphocytes Absolute Auto 0.73 K/mm3 (0.9-3.2); Mean Corpuscular HGB Conc 34.7 g/dl (32-36); Mean Corpuscular Hemoglobin 31.9 pg (26-34); Mean Corpuscular Volume 91.9 fl (80-100); Nucleated Red Blood Cells Absolute Auto 0.000 K/mm3 (0.0-0.012); Nucleated Red Blood Cells Perc 0.0 % (0.0-0.2); Platelet Count Result 232 k/mm3 (150-375); Red Blood Count 4.20 M/mm3 (4.2-5.4); White Blood Count 4.7 K/mm3 (4.5-10.0)
[2025-11-06 12:01] LABS: BEDSIDEPREGUCG Negative (Negative)
[2025-11-06 12:07] LABS: Add Urine Microscopic? YES; Appearance Urine Cloudy (Clear); Glucose Urine UA Negative (Negative); Leukocyte Esterase Ur Trace LEU/UL (Negative); Need Manual Microscopic Reviewed; Nitrate Urine Negative (Negative); Non Pathogenic Casts 0-2; Specific Grav Ur 1.029 (1.001-1.035)
[2025-11-06 12:14] LABS: Alanine Aminotransferase 21 U/L (6-35); Albumin Level 4.0 g/dL (3.5-5.1); Alkaline Phosphatase 38 U/L (38-126); Anion Gap 3 mmol/L (4-12); Aspartate Amino Transferase 27 U/L (14-36); Bilirubin,Total 0.8 mg/dL (0.2-1.3); Blood Urea Nitrogen 14 mg/dL (7-17); Calcium 8.6 mg/dL (8.4-10.2); Carbon Dioxide 29 mmol/L (22-30); Chloride 101 mmol/L (98-107); Estimated CRCL calculation 110 ml/min; Estimated Glomerular Filt Rate > 60; Glucose 103 mg/dL (65-110); Lipase 45 U/L (23-300); Potassium 3.7 mmol/L (3.4-5.0); Sodium 133 mmol/L (137-145); Total Protein 7.2 g/dL (6.3-8.2)
[2025-11-06 14:07] VITALS: BP 106/71; PULSE 87; RESP 17; O2SAT 100
[2025-11-06 14:29] VITALS: BP 106/71; PULSE 81; RESP 14; O2SAT 97
== END 2025-11-06 14:30 | disposition home or self-care (01) ==
PROVIDERS: Emergency Provider Nurse Practitioner Family
DX: R10.12 Left upper quadrant pain (principal); F17.290 Nicotine dependence, other tobacco product, uncomplicated; K21.9 Gastro-esophageal reflux disease without esophagitis; J45.909 Unspecified asthma, uncomplicated
CPT/HCPCS: 36415; 74177; 80053; 81001; 81025; 83690; 85025; 96361; 96374; 99284; J2405; J7030; Q9967